=== PATIENT | male | born 1960 ===

== ENCOUNTER 2019-06-25 17:47 | Observation (INO) ==
[2019-06-25] MEDS ORDERED: GLUCAGON 1 MG VIAL IM PRN (21:04)
[2019-06-25] MEDS ORDERED: ALUM/MAG/SIMETH/LIDO VISC 1:1 30 ML BOTTLE PO PRN (21:04)
[2019-06-25] MEDS ORDERED: MAGNESIUM HYDROXIDE SUSP 30 ML UDCUP PO PRN (21:04)
[2019-06-25] MEDS ORDERED: traMADol 50 MG TABLET PO PRN (21:04)
[2019-06-25] MEDS ORDERED: ONDANSETRON 4 MG/2 ML VIAL IV PRN (21:04)
[2019-06-25] MEDS ORDERED: NITROGLYCERIN SL 0.4 MG TABLET SL PRN (21:04)
[2019-06-25] MEDS ORDERED: DEXTROSE 50% 25 GM/50 ML VIAL IV PRN (21:04)
[2019-06-25] MEDS: ACETAMINOPHEN 325 MG TABLET PO PRN (22:49)
[2019-06-25 23:51] LABS: Basophils % 0.1 % (0.0-0.8); Eosinophils # 0.3 10*3/uL (0.0-0.87); Eosinophils % 3.8 % (0.00-10.9); Hematocrit 44.1 VOL% (42.0-52.0); Hemoglobin 14.5 GM/DL (14.0-18.0); Immature Granulocytes % 0.5 %; Immature Granulocytes Absolute 0.04 #; Lymphocytes # 1.7 10*3/uL (1.4-4.0); Lymphocytes % 20.7 % (21.2-54.2); Mean Corpuscular HGB Conc 32.9 GM/DL (32-36); Mean Corpuscular Volume 90.9 FL (87-102); Mean Platelet Volume 9.7 FL (9.6-12.0); Monocytes % 8.4 % (1.7-12.7); Neutrophils % 66.5 % (38.7-73.9); Platelet Count 179 T/CUMM (130-400); Red Blood Count 4.85 MC/CUMM (3.8-5.5); Red Cell Distribution Width 14.1 % (9.3-17.3); White Blood Count 8.3 T/CUMM (4-12)
[2019-06-25 23:57] LABS: PT Patient Result 10.9 SECS (9.6-12.2); Partial Thromboplastin Time 28.2 SECS (20.8-36.0)
[2019-06-26 00:01] LABS: Risk Ratio 2.88; VLDL CHOLESTEROL 21.8 MG/DL
[2019-06-26 00:01] LABS: Barbiturates Screen,Urine Negative (Negative); Benzodiazepines Screen,Urine Negative (Negative); Cannabinoid Screen,Urine Negative (Negative); Opiate Screen,Urine Negative (Negative); Phencyclidine Screen,Urine Negative (Negative)
[2019-06-26 00:08] LABS: Troponin I < 0.015 NG/ML (0.00-0.045)
[2019-06-26 00:09] LABS: Albumin 3.7 G/DL (3.4-5.0); Bilirubin,Total 0.6 MG/DL (0.2-1.0); Calcium 8.8 MG/DL (8.5-10.1); Osmolality,Calculated 276.8 MOS/KG (273-304); Total Protein 7.7 G/DL (6.4-8.3)
[2019-06-26] MEDS: INSULIN REGULAR 100 UNIT/ML SUBCUT SCH ×4 (06:34→18:50)
[2019-06-26 06:40] LABS: Troponin I < 0.015 NG/ML (0.00-0.045)
[2019-06-26] MEDS ORDERED: carvediloL 3.125 MG TABLET PO SCH (09:00)
[2019-06-26] MEDS: FLUTICASONE 50 MCG NASAL SPRAY 16 GM BOTTLE BOTH NARES SCH ×2 (12:51→21:42)
[2019-06-26] MEDS: SIMVASTATIN 20 MG TABLET PO SCH (12:52)
[2019-06-26] MEDS: OMEGA 3 ACID ETHYL ESTERS 1 GM CAPSULE PO SCH (12:52)
[2019-06-26] MEDS: ASPIRIN EC 325 MG TABLET PO SCH (12:52)
[2019-06-26] MEDS ORDERED: HYDROmorphone 2 MG/1 ML VIAL IV ONE (14:41)
[2019-06-26] MEDS: carvediloL 12.5 MG TABLET PO SCH (21:42)
[2019-06-27] MEDS: INSULIN REGULAR 100 UNIT/ML SUBCUT SCH ×2 (06:08)
[2019-06-27] MEDS: ACETAMINOPHEN 325 MG TABLET PO PRN (08:01)
[2019-06-27] MEDS: FLUTICASONE 50 MCG NASAL SPRAY 16 GM BOTTLE BOTH NARES SCH (08:01)
[2019-06-27] MEDS: carvediloL 12.5 MG TABLET PO SCH (08:01)
[2019-06-27] MEDS: ASPIRIN EC 325 MG TABLET PO SCH (08:01)
[2019-06-27] MEDS: OMEGA 3 ACID ETHYL ESTERS 1 GM CAPSULE PO SCH (08:01)
[2019-06-27] MEDS: SIMVASTATIN 20 MG TABLET PO SCH (08:01)
[2019-06-27 08:11] VITALS: BP 133/79
== END 2019-06-27 13:14 | disposition home or self-care (01) ==
LOC: N.2W → SUATTDRO 20:07 → N.5E 06-26 17:43
PROVIDERS: ADMIT Internal Medicine; ATTEND Family Medicine